=== PATIENT | female | born 1985 | race Two or more races ===

== ENCOUNTER 2021-06-29 19:12 | Emergency (ER) | payer OTHER ==
[~2021-06-29] VITALS: Ht 165.1 cm; Wt 92.5 kg
[2021-06-29] MEDS ORDERED: SYNTHROID137 MCG (19:21)
[2021-06-29] MEDS ORDERED: PRENATA CHEWAB1 EACH (19:21)
== END 2021-06-29 22:02 | disposition home or self-care (01) ==
LOC: ER 19:12
DX: O20.0 Threatened abortion (principal)

== ENCOUNTER 2021-07-19 11:39 | Emergency (ER) | payer OTHER ==
[~2021-07-19] VITALS: Ht 165.1 cm; Wt 91.6 kg
[~2021-07-19 11:39] MED LIST: PRENATA CHEWAB1 EACH; SYNTHROID137 MCG
== END 2021-07-19 19:08 | disposition home or self-care (01) ==
LOC: ER 11:39
DX: O26.851 Spotting complicating pregnancy, first trimester (principal); Z3A.00 Weeks of gestation of pregnancy not specified

== ENCOUNTER 2021-09-03 12:48 | Outpatient (CLI) | payer OTHER ==
[2021-09-03] MEDS ORDERED: PRENATAL TABLE1 EAC1 PO (13:31)
[2021-09-03] MEDS ORDERED: ADULT LOW DOSE81 M1 PO (13:32)
[2021-09-03] MEDS ORDERED: SYNTHROID150 MCG PO (13:32)
== END 2021-09-04 11:07 | disposition home or self-care (01) ==
LOC: OBS/DEL 12:48
PROVIDERS: ATTEND Obstetrics & Gynecology
DX: O34.12 Maternal care for benign tumor of corpus uteri, second trimester (principal); D25.9 Leiomyoma of uterus, unspecified; O26.842 Uterine size-date discrepancy, second trimester; O26.892 Other specified pregnancy related conditions, second trimester; R10.2 Pelvic and perineal pain; Z3A.18 18 weeks gestation of pregnancy